=== PATIENT | female | born 1980 | race Caucasian/White ===

== ENCOUNTER 2020-09-05 09:20 | Inpatient (IN) ==
[2020-09-05] MEDS ORDERED: 0.9 % Sodium Chloride 1,000 ML IVC ONE ×2 (09:33→11:17)
[2020-09-05] MEDS ORDERED: Piperacillin/Tazobactam 3.375 GM in Water for inj. (sterile) 20 ML IVP ONE (09:40)
[2020-09-05] MEDS ORDERED: *HR* Buprenorphine HCl 8 MG TAB.SUBL SL ONE (09:47)
[2020-09-05] MEDS ORDERED: Acetaminophen 325 MG TABLET PO ONE (10:13)
[2020-09-05 10:17] LABS: Amorphous Sediment,Urine Few per hpf (None-Few); Bacteria,Urine Few per hpf (None-Few); Bilirubin,Urine Negative (Negative); Blood,Urine Negative (Negative); Clarity,Urine Turbid (Clear); Color,Urine Yellow (Yellow); Glucose,Urine (UA) Normal (Normal); Ketones,Urine 20 mg/dL (Negative); Leukocyte Esterase,Urine Large (Negative); Mucus,Urine Many per lpf (None-Few); Nitrite,Urine Negative (Negative); Protein,Urine 30 mg/dL (Neg-Trace); Specific Gravity,Urine 1.025 (1.010-1.025); Squamous Epithelial Cell,Urine Few per hpf (None-Few); WBC,Urine 15-30 per hpf (0-3)
[2020-09-05 10:22] LABS: Amphetamine Screen,Urine Positive ng/mL (Cutoff=1000); Barbiturate Screen,Urine Negative ng/mL (Cutoff=200); Benzodiazepines Screen,Urine Negative ng/mL (Cutoff=200); Cannabinoid Screen,Urine Negative ng/mL (Cutoff = 50); Cocaine Screen,Urine Negative ng/mL (Cutoff= 300); Opiate Screen,Urine Negative ng/mL (Cutoff=300); Phencyclidine Screen,Urine Negative ng/mL (Cutoff=25)
[2020-09-05 10:32] LABS: Alanine Aminotransferase 18 Units/L (7-52); Albumin 3.7 g/dL (3.5-5.7); Albumin/Globulin Ratio 0.9 (1.1-2.2); Alkaline Phosphatase 82 Units/L (34-104); Aspartate Amino Transferase 22 Units/L (13-39); BUN/Creatinine Ratio 34 (6-26); Bilirubin,Total 0.8 mg/dL (0.3-1.0); Blood Urea Nitrogen 16 mg/dL (6-20); Calcium 9.5 mg/dL (8.6-10.3); Carbon Dioxide 18 mEq/L (23-29); Chloride 103 mEq/L (98-107); Globulin 3.9 g/dL (2.4-3.5); Glucose 137 mg/dL (70-105); Osmolality,Calculated 283 (280-300); Sodium 135 mEq/L (136-145); Total Protein 7.6 g/dL (6.4-8.9); Troponin I < 0.03 ng/mL (< 0.04); eGFR For African Americans > 60 (> 60); eGFR For Non-African Americans > 60 (> 60)
[2020-09-05 10:57] LABS: Hematocrit 31.5 % (35.3-44.9); Hemoglobin 9.6 g/dL (11.5-15.4); Mean Corpuscular HGB Conc 30.5 g/dL (31.6-35.5); Mean Corpuscular Hemoglobin 17.5 pg (28.0-33.3); Mean Corpuscular Volume 57.5 fL (83.0-100.0); Platelet Count 627 K/mcL (140-400); Red Blood Count 5.48 M/mcL (3.82-4.97); Red Cell Distribution Width 16.8 % (11.5-14.5); White Blood Count 19.2 K/mcL (4.3-11.1)
[2020-09-05 11:00] LABS: Anisocytosis 1+ (Not Present); Hypochromasia Present (Not Present); Monocytes # 0.8 K/mcL (0.0-1.3); Neutrophils # 18.4 K/mcL (1.6-8.9); Ovalocytes 1+ (Not Present); Platelet Estimate Increased (Normal); Poikilocytosis 2+ (Not Present)
[2020-09-05 11:01] LABS: Schistocytes 1+ (Not Present); Target Cells 1+ (Not Present)
[2020-09-05 11:03] LABS: Microcytosis Present (Not Present)
[2020-09-05] MEDS ORDERED: Potassium Effervescent 25 MEQ TABLET.EFF PO ONE (11:41)
[2020-09-05] MEDS ORDERED: Naloxone 0.4 MG/ML INJ IVP PRN (11:58)
[2020-09-05] MEDS ORDERED: Ondansetron 4 MG/2 ML VIAL IVP PRN (11:58)
[2020-09-05] MEDS: 0.9 % Sodium Chloride 1,000 ML IVC SCH ×2 (15:06→22:36)
[2020-09-05] MEDS: Piperacillin/Tazobactam 3.375 GM in 0.9 % Sodium Chloride Mini Bag 100 ML IVPB SCH ×2 (15:07→23:07)
[2020-09-05] MEDS: *HR* Buprenorphine HCl 8 MG TAB.SUBL SL SCH (20:04)
[2020-09-05] MEDS: Acetaminophen 325 MG TABLET PO PRN (21:15)
[2020-09-06 00:42] LABS: Enterococcus by PCR Not Detected (Not Detect); mecA Methicillin-Resist Gene DETECTED (Not Detect)
[2020-09-06 00:43] LABS: Acinetobacter baumannii by PCR Not Detected (Not Detect); Candida albicans by PCR Not Detected (Not Detect); Candida glabrata by PCR Not Detected (Not Detect); Candida krusei by PCR Not Detected (Not Detect); Candida parapsilosis by PCR Not Detected (Not Detect); Candida tropicalis by PCR Not Detected (Not Detect); Enterobacter cloacae Cmplx PCR Not Detected (Not Detect); Enterobacteriaceae by PCR Not Detected (Not Detect); Escherichia coli by PCR Not Detected (Not Detect); Klebsiella oxytoca by PCR Not Detected (Not Detect); Klebsiella pneumoniae by PCR Not Detected (Not Detect); Proteus by PCR Not Detected (Not Detect); Pseudomonas aeruginosa by PCR Not Detected (Not Detect); Serratia marcescens by PCR Not Detected (Not Detect); Staphylococcus aureus by PCR DETECTED (Not Detect); Streptococcus agalactiae(B)PCR Not Detected (Not Detect); Streptococcus by PCR Not Detected (Not Detect); Streptococcus pneumoniae PCR Not Detected (Not Detect); Streptococcus pyogenes (A) PCR Not Detected (Not Detect)
[2020-09-06] MEDS: Acetaminophen 325 MG TABLET PO PRN ×3 (01:15→21:17)
[2020-09-06] MEDS: *HR* Enoxaparin 40 MG/0.4 ML SYRINGE SQ SCH (06:20)
[2020-09-06] MEDS ORDERED: Perflutren Lipid Microsphere 1.3 ML in 0.9 % Sodium Chloride 8.7 ML IVP PRN (07:27)
[2020-09-06 08:27] LABS: Eosinophils % 0.2 %; Monocytes % 7.5 %
[2020-09-06 08:29] LABS: Basophils % 0.2 %; Hematocrit 25.3 % (35.3-44.9); Hemoglobin 7.8 g/dL (11.5-15.4); Immature Granulocytes % 0.4 % (0-4); Immature Platelets 3.5 % (1.1-6.1); Lymphocytes # 1.7 K/mcL (0.6-4.6); Lymphocytes % 13.3 %; Mean Corpuscular HGB Conc 30.8 g/dL (31.6-35.5); Mean Corpuscular Hemoglobin 17.6 pg (28.0-33.3); Mean Corpuscular Volume 57.2 fL (83.0-100.0); Platelet Count 344 K/mcL (140-400); Red Blood Count 4.42 M/mcL (3.82-4.97); Red Cell Distribution Width 16.7 % (11.5-14.5); Segmented Neutrophils % 78.4 %; White Blood Count 13.1 K/mcL (4.3-11.1)
[2020-09-06 08:35] LABS: INR 1.5; Prothrombin Time 16.7 Seconds (9.4-12.1)
[2020-09-06 08:37] LABS: Activated Partial Thrombo Time 30.9 Seconds (26.0-36.0)
[2020-09-06 08:38] LABS: Neutrophils # 10.3 K/mcL (1.6-8.9)
[2020-09-06 08:45] LABS: BUN/Creatinine Ratio 27 (6-26); Blood Urea Nitrogen 12 mg/dL (6-20); Calcium 7.8 mg/dL (8.6-10.3); Carbon Dioxide 20 mEq/L (23-29); Chloride 110 mEq/L (98-107); Glucose 130 mg/dL (70-105); Magnesium 1.1 mg/dL (1.6-2.6); Osmolality,Calculated 288 (280-300); Phosphorous 2.1 mg/dL (2.7-4.5); Potassium 2.8 mEq/L (3.5-5.1); Sodium 138 mEq/L (136-145); eGFR For African Americans > 60 (> 60); eGFR For Non-African Americans > 60 (> 60)
[2020-09-06] MEDS: *HR* Buprenorphine HCl 8 MG TAB.SUBL SL SCH ×2 (08:53→21:16)
[2020-09-06 08:57] LABS: Anisocytosis 1+ (Not Present); Microcytosis Present (Not Present); Platelet Estimate Normal (Normal); Poikilocytosis 1+ (Not Present)
[2020-09-06 08:58] LABS: Hypochromasia Present (Not Present); Ovalocytes 1+ (Not Present)
[2020-09-06] MEDS ORDERED: *HR* Buprenorphine HCl 8 MG TAB.SUBL SL ONE (09:47)
[2020-09-06 18:24] LABS: Potassium 4.1 mEq/L (3.5-5.1)
[2020-09-06] MEDS: QUEtiapine Fumarate 25 MG TABLET PO SCH (21:16)
[2020-09-06] MEDS: Magnesium Oxide 400 MG TABLET PO SCH (21:17)
[2020-09-07 01:20] LABS: Red Cell Distribution Width 16.4 % (11.5-14.5)
[2020-09-07 01:21] LABS: Hematocrit 24.5 % (35.3-44.9); Hemoglobin 7.8 g/dL (11.5-15.4); Immature Platelets 3.9 % (1.1-6.1); Mean Corpuscular HGB Conc 31.8 g/dL (31.6-35.5); Mean Corpuscular Hemoglobin 17.9 pg (28.0-33.3); Mean Corpuscular Volume 56.3 fL (83.0-100.0); Platelet Count 352 K/mcL (140-400); Red Blood Count 4.35 M/mcL (3.82-4.97); White Blood Count 10.7 K/mcL (4.3-11.1)
[2020-09-07 01:43] LABS: BUN/Creatinine Ratio 28 (6-26); Blood Urea Nitrogen 10 mg/dL (6-20); Calcium 8.1 mg/dL (8.6-10.3); Carbon Dioxide 20 mEq/L (23-29); Chloride 109 mEq/L (98-107); Glucose 156 mg/dL (70-105); Iron 11 mcg/dL (50-170); Magnesium 1.5 mg/dL (1.6-2.6); Osmolality,Calculated 288 (280-300); Phosphorous 2.2 mg/dL (2.7-4.5); Potassium 3.4 mEq/L (3.5-5.1); Sodium 138 mEq/L (136-145); eGFR For African Americans > 60 (> 60); eGFR For Non-African Americans > 60 (> 60)
[2020-09-07 02:02] LABS: % Iron Saturation 6 % (15-50); Transferrin 127 mg/dL (203-362)
[2020-09-07 02:31] LABS: Eosinophils # 0.2 K/mcL (0.0-0.6); Lymphocytes # 2.6 K/mcL (0.6-4.6); Monocytes # 1.5 K/mcL (0.0-1.3); Neutrophils # 6.4 K/mcL (1.6-8.9); Platelet Estimate Normal (Normal)
[2020-09-07] MEDS: *HR* Enoxaparin 40 MG/0.4 ML SYRINGE SQ SCH (06:36)
[2020-09-07] MEDS ORDERED: Potassium Phosphate 44 MEQ in 0.9 % Sodium Chloride 250 ML IVPB ONE (07:19)
[2020-09-07] MEDS: *HR* Buprenorphine HCl 8 MG TAB.SUBL SL SCH ×2 (09:31→20:54)
[2020-09-07] MEDS: Magnesium Oxide 400 MG TABLET PO SCH ×2 (09:31→20:54)
[2020-09-07] MEDS: QUEtiapine Fumarate 25 MG TABLET PO SCH (20:54)
[2020-09-07] MEDS: Acetaminophen 325 MG TABLET PO PRN (20:54)
[2020-09-08] MEDS: Acetaminophen 325 MG TABLET PO PRN (03:55)
[2020-09-08] MEDS: *HR* Enoxaparin 40 MG/0.4 ML SYRINGE SQ SCH (06:32)
[2020-09-08 07:14] LABS: BUN/Creatinine Ratio 32 (6-26); Blood Urea Nitrogen 11 mg/dL (6-20); Calcium 8.6 mg/dL (8.6-10.3); Carbon Dioxide 23 mEq/L (23-29); Chloride 113 mEq/L (98-107); Glucose 110 mg/dL (70-105); Magnesium 1.5 mg/dL (1.6-2.6); Osmolality,Calculated 300 (280-300); Phosphorous 4.6 mg/dL (2.7-4.5); Potassium 3.8 mEq/L (3.5-5.1); Sodium 145 mEq/L (136-145); Vancomycin,Trough 9 mcg/mL (5-10); eGFR For African Americans > 60 (> 60); eGFR For Non-African Americans > 60 (> 60)
[2020-09-08] MEDS ORDERED: Vancomycin 1,250 MG/262.5 ML IV.SOLN IVPB SCH (08:00)
[2020-09-08] MEDS: Magnesium Oxide 400 MG TABLET PO SCH ×2 (08:57→21:41)
[2020-09-08] MEDS: *HR* Buprenorphine HCl 8 MG TAB.SUBL SL SCH ×2 (08:58→21:42)
[2020-09-08] MEDS ORDERED: *HR* HYDROmorphone PF 0.5 MG/0.5 ML SYRINGE IVP PRN (12:03)
[2020-09-08] MEDS ORDERED: *HR* Midazolam HCl 2 MG/2 ML VIAL ONE (12:41)
[2020-09-08] MEDS ORDERED: Ondansetron 4 MG/2 ML VIAL ONE (12:41)
[2020-09-08] MEDS ORDERED: Lidocaine -MPF 2% 2 ML VIAL ONE (12:41)
[2020-09-08] MEDS ORDERED: *HR* Propofol 200 MG/20 ML VIAL IVP ONE (12:41)
[2020-09-08] MEDS ORDERED: *HR* FentaNYL (PF) 100 MCG/2 ML VIAL ONE (12:41)
[2020-09-08] MEDS ORDERED: Naloxone 0.4 MG/ML INJ IVP PRN (13:58)
[2020-09-08] MEDS ORDERED: Ondansetron 4 MG/2 ML VIAL IVP PRN (13:58)
[2020-09-08] MEDS ORDERED: Perflutren Lipid Microsphere 1.3 ML in 0.9 % Sodium Chloride 8.7 ML IVP PRN (13:58)
[2020-09-08] MEDS: Vancomycin 1,250 MG/262.5 ML IV.SOLN IVPB SCH ×2 (16:45→23:41)
[2020-09-08] MEDS: QUEtiapine Fumarate 25 MG TABLET PO SCH (21:43)
[2020-09-09] MEDS: *HR* Enoxaparin 40 MG/0.4 ML SYRINGE SQ SCH (05:25)
[2020-09-09 08:11] LABS: BUN/Creatinine Ratio 42 (6-26); Blood Urea Nitrogen 15 mg/dL (6-20); Calcium 9.2 mg/dL (8.6-10.3); Carbon Dioxide 24 mEq/L (23-29); Chloride 105 mEq/L (98-107); Glucose 146 mg/dL (70-105); Magnesium 1.6 mg/dL (1.6-2.6); Osmolality,Calculated 289 (280-300); Phosphorous 3.5 mg/dL (2.7-4.5); Potassium 4.3 mEq/L (3.5-5.1); Sodium 138 mEq/L (136-145); eGFR For African Americans > 60 (> 60); eGFR For Non-African Americans > 60 (> 60)
[2020-09-09] MEDS: Magnesium Oxide 400 MG TABLET PO SCH ×2 (09:20→21:04)
[2020-09-09] MEDS: Vancomycin 1,250 MG/262.5 ML IV.SOLN IVPB SCH (09:21)
[2020-09-09] MEDS: *HR* Buprenorphine HCl 8 MG TAB.SUBL SL SCH ×2 (09:21→21:05)
[2020-09-09] MEDS: Acetaminophen 325 MG TABLET PO PRN ×2 (09:43→16:41)
[2020-09-09] MEDS ORDERED: 0.9 % Sodium Chloride 500 ML IVC ONE (10:14)
[2020-09-09] MEDS ORDERED: Lidocaine Viscous Oral Soln 15 ML SOLUTION MM PRN (10:14)
[2020-09-09] MEDS ORDERED: *HR* Propofol 200 MG/20 ML VIAL IVP ONE ×2 (11:40)
[2020-09-09] MEDS ORDERED: *HR* FentaNYL (PF) 100 MCG/2 ML VIAL ONE ×2 (11:40)
[2020-09-09] MEDS: cefTRIAXone 1,000 MG in Water for inj. (sterile) 10 ML IVP SCH (16:25)
[2020-09-09] MEDS: Vancomycin 1,500 MG/265 ML IV.SOLN IVPB SCH (16:26)
[2020-09-09] MEDS: QUEtiapine Fumarate 25 MG TABLET PO SCH (21:05)
[2020-09-10] MEDS: Vancomycin 1,500 MG/265 ML IV.SOLN IVPB SCH ×3 (01:21→17:07)
[2020-09-10 06:03] LABS: Hematocrit 25.1 % (35.3-44.9); Hemoglobin 7.9 g/dL (11.5-15.4); Mean Corpuscular HGB Conc 31.5 g/dL (31.6-35.5)
[2020-09-10 06:05] LABS: Immature Platelets 3.3 % (1.1-6.1); Mean Corpuscular Hemoglobin 17.8 pg (28.0-33.3); Mean Corpuscular Volume 56.5 fL (83.0-100.0); Platelet Count 429 K/mcL (140-400); Red Blood Count 4.44 M/mcL (3.82-4.97); Red Cell Distribution Width 16.8 % (11.5-14.5); White Blood Count 10.2 K/mcL (4.3-11.1)
[2020-09-10] MEDS: *HR* Enoxaparin 40 MG/0.4 ML SYRINGE SQ SCH (06:05)
[2020-09-10 06:27] LABS: BUN/Creatinine Ratio 27 (6-26); Blood Urea Nitrogen 13 mg/dL (6-20); Calcium 8.6 mg/dL (8.6-10.3); Carbon Dioxide 25 mEq/L (23-29); Chloride 105 mEq/L (98-107); Glucose 97 mg/dL (70-105); Osmolality,Calculated 282 (280-300); Potassium 4.2 mEq/L (3.5-5.1); Sodium 136 mEq/L (136-145); eGFR For African Americans > 60 (> 60); eGFR For Non-African Americans > 60 (> 60)
[2020-09-10] MEDS: Magnesium Oxide 400 MG TABLET PO SCH ×2 (09:38→20:30)
[2020-09-10] MEDS: *HR* Buprenorphine HCl 8 MG TAB.SUBL SL SCH ×2 (09:39→20:29)
[2020-09-10] MEDS: cefTRIAXone 1,000 MG in Water for inj. (sterile) 10 ML IVP SCH (09:39)
[2020-09-10] MEDS: QUEtiapine Fumarate 25 MG TABLET PO SCH (20:31)
[2020-09-11] MEDS: Vancomycin 1,500 MG/265 ML IV.SOLN IVPB SCH ×4 (00:24→20:14)
[2020-09-11 02:08] LABS: Hemoglobin 8.5 g/dL (11.5-15.4)
[2020-09-11 02:09] LABS: Hematocrit 26.9 % (35.3-44.9); Immature Platelets 4.1 % (1.1-6.1); Mean Corpuscular HGB Conc 31.6 g/dL (31.6-35.5); Mean Corpuscular Hemoglobin 18.1 pg (28.0-33.3); Mean Corpuscular Volume 57.2 fL (83.0-100.0); Platelet Count 474 K/mcL (140-400); White Blood Count 9.8 K/mcL (4.3-11.1)
[2020-09-11 02:26] LABS: BUN/Creatinine Ratio 33 (6-26); Blood Urea Nitrogen 17 mg/dL (6-20); Calcium 8.7 mg/dL (8.6-10.3); Carbon Dioxide 28 mEq/L (23-29); Chloride 100 mEq/L (98-107); Glucose 100 mg/dL (70-105); Osmolality,Calculated 282 (280-300); Potassium 4.3 mEq/L (3.5-5.1); Sodium 135 mEq/L (136-145); eGFR For African Americans > 60 (> 60); eGFR For Non-African Americans > 60 (> 60)
[2020-09-11] MEDS: *HR* Enoxaparin 40 MG/0.4 ML SYRINGE SQ SCH (06:09)
[2020-09-11] MEDS: Magnesium Oxide 400 MG TABLET PO SCH ×2 (09:41→20:13)
[2020-09-11] MEDS: *HR* Buprenorphine HCl 8 MG TAB.SUBL SL SCH ×2 (09:42→20:13)
[2020-09-11] MEDS: cefTRIAXone 1,000 MG in Water for inj. (sterile) 10 ML IVP SCH (09:42)
[2020-09-11] MEDS: QUEtiapine Fumarate 25 MG TABLET PO SCH (20:13)
[2020-09-12 03:06] LABS: Hematocrit 30.6 % (35.3-44.9); Hemoglobin 9.6 g/dL (11.5-15.4); Immature Platelets 3.8 % (1.1-6.1); Mean Corpuscular HGB Conc 31.4 g/dL (31.6-35.5); Mean Corpuscular Hemoglobin 17.7 pg (28.0-33.3); Mean Corpuscular Volume 56.4 fL (83.0-100.0); Platelet Count 556 K/mcL (140-400); Red Blood Count 5.43 M/mcL (3.82-4.97); White Blood Count 10.8 K/mcL (4.3-11.1)
[2020-09-12 03:20] LABS: BUN/Creatinine Ratio 36 (6-26); Blood Urea Nitrogen 21 mg/dL (6-20); Calcium 9.5 mg/dL (8.6-10.3); Carbon Dioxide 28 mEq/L (23-29); Chloride 98 mEq/L (98-107); Glucose 109 mg/dL (70-105); Osmolality,Calculated 280 (280-300); Potassium 4.6 mEq/L (3.5-5.1); Sodium 133 mEq/L (136-145); eGFR For African Americans > 60 (> 60); eGFR For Non-African Americans > 60 (> 60)
[2020-09-12] MEDS: Vancomycin 1,500 MG/265 ML IV.SOLN IVPB SCH ×3 (06:08→20:37)
[2020-09-12] MEDS: *HR* Enoxaparin 40 MG/0.4 ML SYRINGE SQ SCH (06:09)
[2020-09-12] MEDS: *HR* Buprenorphine HCl 8 MG TAB.SUBL SL SCH ×2 (08:27→20:37)
[2020-09-12] MEDS: cefTRIAXone 1,000 MG in Water for inj. (sterile) 10 ML IVP SCH (08:27)
[2020-09-12] MEDS: Magnesium Oxide 400 MG TABLET PO SCH ×2 (08:27→20:36)
[2020-09-12] MEDS: QUEtiapine Fumarate 25 MG TABLET PO SCH (20:36)
[2020-09-13 04:05] LABS: eGFR For African Americans > 60 (> 60); eGFR For Non-African Americans > 60 (> 60)
[2020-09-13 04:06] LABS: BUN/Creatinine Ratio 48 (6-26); Blood Urea Nitrogen 19 mg/dL (6-20); Calcium 9.5 mg/dL (8.6-10.3); Carbon Dioxide 28 mEq/L (23-29); Chloride 97 mEq/L (98-107); Glucose 112 mg/dL (70-105); Osmolality,Calculated 277 (280-300); Potassium 5.1 mEq/L (3.5-5.1); Sodium 132 mEq/L (136-145); eGFR For African Americans > 60 (> 60); eGFR For Non-African Americans > 60 (> 60)
[2020-09-13] MEDS: *HR* Enoxaparin 40 MG/0.4 ML SYRINGE SQ SCH (05:19)
[2020-09-13] MEDS: Vancomycin 1,500 MG/265 ML IV.SOLN IVPB SCH ×3 (05:19→16:51)
[2020-09-13] MEDS: *HR* Buprenorphine HCl 8 MG TAB.SUBL SL SCH ×2 (08:47→19:51)
[2020-09-13] MEDS: Magnesium Oxide 400 MG TABLET PO SCH ×2 (08:48→19:51)
[2020-09-13] MEDS: cefTRIAXone 1,000 MG in Water for inj. (sterile) 10 ML IVP SCH (08:48)
[2020-09-13] MEDS: metroNIDAZOLE 500 MG TABLET PO SCH ×2 (16:50→19:51)
[2020-09-13] MEDS: QUEtiapine Fumarate 25 MG TABLET PO SCH (19:51)
[2020-09-14 03:26] LABS: Hematocrit 29.4 % (35.3-44.9); Hemoglobin 9.1 g/dL (11.5-15.4); Mean Corpuscular Volume 58.2 fL (83.0-100.0); Platelet Count 649 K/mcL (140-400); Red Blood Count 5.05 M/mcL (3.82-4.97); Red Cell Distribution Width 17.6 % (11.5-14.5); White Blood Count 10.1 K/mcL (4.3-11.1)
[2020-09-14 03:41] LABS: BUN/Creatinine Ratio 37 (6-26); Blood Urea Nitrogen 21 mg/dL (6-20); Calcium 9.5 mg/dL (8.6-10.3); Carbon Dioxide 29 mEq/L (23-29); Chloride 97 mEq/L (98-107); Glucose 161 mg/dL (70-105); Osmolality,Calculated 280 (280-300); Potassium 4.2 mEq/L (3.5-5.1); Sodium 132 mEq/L (136-145); eGFR For African Americans > 60 (> 60); eGFR For Non-African Americans > 60 (> 60)
[2020-09-14] MEDS: Vancomycin 1,500 MG/265 ML IV.SOLN IVPB SCH ×2 (05:06→17:11)
[2020-09-14] MEDS: *HR* Enoxaparin 40 MG/0.4 ML SYRINGE SQ SCH (05:06)
[2020-09-14] MEDS: metroNIDAZOLE 500 MG TABLET PO SCH ×3 (09:28→19:52)
[2020-09-14] MEDS: Magnesium Oxide 400 MG TABLET PO SCH ×2 (09:29→19:52)
[2020-09-14] MEDS: *HR* Buprenorphine HCl 8 MG TAB.SUBL SL SCH ×2 (09:29→19:52)
[2020-09-14] MEDS: cefTRIAXone 1,000 MG in Water for inj. (sterile) 10 ML IVP SCH (09:29)
[2020-09-14 15:10] VITALS: O2SAT 97
[2020-09-14 19:50] VITALS: BP 115/77; PULSE 99; TEMP 98.5
[2020-09-14] MEDS: QUEtiapine Fumarate 25 MG TABLET PO SCH (19:51)
== END 2020-09-14 20:00 | disposition left against medical advice (07) | DRG 710 ==
LOC: 2ANU 09:20 → EMEROOARM 09:20 → SUATTDRO 12:39 → 2ANU 13:23 → SUATTDRO 09-06 17:44
PROVIDERS: ADMIT Internal Medicine; ATTEND Family Medicine

== ENCOUNTER 2020-11-13 03:11 | Inpatient (IN) ==
[2020-11-13] MEDS ORDERED: Lido/Epi/Tetra Gel 2 ML SYRINGE TP ONE (04:08)
[2020-11-13] MEDS ORDERED: Lidocaine -MPF 1% 2 ML VIAL INFILT ONE (04:18)
[2020-11-13] MEDS ORDERED: *HR* Buprenorphine HCl 2 MG SUBLINGUAL TABLET SL ONE ×2 (04:30→09:15)
[2020-11-13 04:59] LABS: Hemoglobin 9.1 g/dL (11.5-15.4); Mean Corpuscular Volume 53.7 fL (83.0-100.0)
[2020-11-13 05:01] LABS: Immature Platelets 12.8 % (1.1-6.1); Mean Corpuscular HGB Conc 32.5 g/dL (31.6-35.5); Mean Corpuscular Hemoglobin 17.5 pg (28.0-33.3); Platelet Count 154 K/mcL (140-400); Red Blood Count 5.21 M/mcL (3.82-4.97)
[2020-11-13 05:26] LABS: Troponin I 0.17 ng/mL (< 0.04)
[2020-11-13 05:36] LABS: Alanine Aminotransferase 13 Units/L (7-52); Albumin 2.6 g/dL (3.5-5.7); Albumin/Globulin Ratio 0.7 (1.1-2.2); Alkaline Phosphatase 140 Units/L (34-104); Aspartate Amino Transferase 27 Units/L (13-39); BUN/Creatinine Ratio 40 (6-26); Bilirubin,Direct 0.3 mg/dL (0.0-0.2); Bilirubin,Indirect 0.5 mg/dL (0.0-1.0); Bilirubin,Total 0.8 mg/dL (0.3-1.0); Blood Urea Nitrogen 17 mg/dL (6-20); Calcium 8.6 mg/dL (8.6-10.3); Carbon Dioxide 25 mEq/L (23-29); Chloride 101 mEq/L (98-107); Globulin 3.9 g/dL (2.4-3.5); Glucose 186 mg/dL (70-105); Lipase 9 Units/L (11-82); Magnesium 1.5 mg/dL (1.6-2.6); Osmolality,Calculated 290 (280-300); Phosphorous 2.5 mg/dL (2.7-4.5); Potassium 2.6 mEq/L (3.5-5.1); Sodium 137 mEq/L (136-145); Total Protein 6.5 g/dL (6.4-8.9); eGFR For African Americans > 60 (> 60); eGFR For Non-African Americans > 60 (> 60)
[2020-11-13 05:39] LABS: White Blood Count 30.1 K/mcL (4.3-11.1)
[2020-11-13] MEDS ORDERED: Gadolinium Contrast Agent (WT Based) IV PRN (05:44)
[2020-11-13 05:46] LABS: Lymphocytes # 1.5 K/mcL (0.6-4.6); Monocytes # 1.8 K/mcL (0.0-1.3); Neutrophils # 26.8 K/mcL (1.6-8.9)
[2020-11-13 05:47] LABS: Anisocytosis 1+ (Not Present); Ovalocytes 1+ (Not Present); Target Cells 1+ (Not Present)
[2020-11-13 05:48] LABS: Hypochromasia Present (Not Present); Platelet Estimate Normal (Normal); Poikilocytosis 1+ (Not Present); Reactive Lymphocytes Present (Not Present); Smudge Cells Present (Not Present); Toxic Granulation Present (Not Present)
[2020-11-13 06:12] LABS: Bilirubin,Urine Negative (Negative); Blood,Urine Moderate (Negative); Clarity,Urine Turbid (Clear); Color,Urine Yellow (Yellow); Glucose,Urine (UA) 70 mg/dL (Normal); Ketones,Urine Negative (Negative); Leukocyte Esterase,Urine Large (Negative); Mucus,Urine Few per lpf (None-Few); Nitrite,Urine Negative (Negative); PH,Urine 6.5 pH Units (5.0-8.0); Protein,Urine 70 mg/dL (Neg-Trace); RBC,Urine 50-100 per hpf (0-3); Renal Epithelial Cells,Urine Few per hpf (None-Few); Specific Gravity,Urine 1.018 (1.010-1.025); Squamous Epithelial Cell,Urine Few per hpf (None-Few); Transitional Epi Cells,Urine Few per hpf (None-Few); Urobilinogen,Urine >=8.0 mg/dL (Normal); WBC,Urine TNTC per hpf (0-3)
[2020-11-13 06:14] LABS: Influenza A PCR Negative (Negative); Influenza B PCR Negative (Negative); Resp. Syncytial Virus PCR Negative (Negative)
[2020-11-13 06:15] LABS: SARS-CoV-2 by PCR (In House) Negative (Negative)
[2020-11-13] MEDS ORDERED: Naloxone 0.4 MG/ML INJ IVP PRN (07:45)
[2020-11-13] MEDS ORDERED: Ondansetron 4 MG/2 ML VIAL IVP PRN (07:45)
[2020-11-13] MEDS ORDERED: Ringers Solution, Lactated 1,000 ML IVC ONE (08:17)
[2020-11-13] MEDS ORDERED: GADOBUTROL 30 MMOL/30 ML VIAL IVP ONE (08:22)
[2020-11-13] MEDS ORDERED: Vancomycin 1 EACH in 0.9 % Sodium Chloride 250 ML IVPB SCH (09:00)
[2020-11-13] MEDS: Piperacillin/Tazobactam 3.375 GM in 0.9 % Sodium Chloride Mini Bag 100 ML IVPB SCH ×2 (09:20→17:03)
[2020-11-13] MEDS ORDERED: *HR* OxyCODONE/APAP 5/325 TABLET PO PRN (09:34)
[2020-11-13 13:14] LABS: C-Reactive Protein 167 mg/L (Less than 10)
[2020-11-13] MEDS ORDERED: 0.9 % Sodium Chloride 1,000 ML ONE (14:05)
[2020-11-13] MEDS: Acetaminophen 325 MG TABLET PO PRN ×2 (14:27→20:08)
[2020-11-13] MEDS: 0.9 % Sodium Chloride 1,000 ML IVC SCH (17:04)
[2020-11-13 17:11] LABS: BUN/Creatinine Ratio 47 (6-26); Blood Urea Nitrogen 18 mg/dL (6-20); Calcium 8.1 mg/dL (8.6-10.3); Carbon Dioxide 22 mEq/L (23-29); Chloride 110 mEq/L (98-107); Glucose 168 mg/dL (70-105); Osmolality,Calculated 292 (280-300); Potassium 3.5 mEq/L (3.5-5.1); Sodium 138 mEq/L (136-145); eGFR For African Americans > 60 (> 60); eGFR For Non-African Americans > 60 (> 60)
[2020-11-13 17:12] LABS: Troponin I 0.05 ng/mL (< 0.04)
[2020-11-13 19:57] LABS: Acinetobacter baumannii by PCR Not Detected (Not Detect); Candida albicans by PCR Not Detected (Not Detect); Candida glabrata by PCR Not Detected (Not Detect); Candida krusei by PCR Not Detected (Not Detect); Candida parapsilosis by PCR Not Detected (Not Detect); Candida tropicalis by PCR Not Detected (Not Detect); Enterobacter cloacae Cmplx PCR Not Detected (Not Detect); Enterobacteriaceae by PCR Not Detected (Not Detect); Enterococcus by PCR Not Detected (Not Detect); Escherichia coli by PCR Not Detected (Not Detect); Klebsiella oxytoca by PCR Not Detected (Not Detect); Klebsiella pneumoniae by PCR Not Detected (Not Detect); Proteus by PCR Not Detected (Not Detect); Pseudomonas aeruginosa by PCR Not Detected (Not Detect); Serratia marcescens by PCR Not Detected (Not Detect); Staphylococcus aureus by PCR DETECTED (Not Detect); Streptococcus agalactiae(B)PCR Not Detected (Not Detect); Streptococcus by PCR Not Detected (Not Detect); Streptococcus pneumoniae PCR Not Detected (Not Detect); Streptococcus pyogenes (A) PCR Not Detected (Not Detect); mecA Methicillin-Resist Gene Not Detected (Not Detect); vanA/B Vancomycin-Resist Genes Not Detected (Not Detect)
[2020-11-13] MEDS: QUEtiapine Fumarate 25 MG TABLET PO SCH (20:08)
[2020-11-14] MEDS: Piperacillin/Tazobactam 3.375 GM in 0.9 % Sodium Chloride Mini Bag 100 ML IVPB SCH ×4 (00:06→23:40)
[2020-11-14] MEDS: 0.9 % Sodium Chloride 1,000 ML IVC SCH (02:49)
[2020-11-14] MEDS ORDERED: *HR* Metoprolol 5 MG/5 ML VIAL IVP ONE ×2 (03:40→03:43)
[2020-11-14] MEDS: Acetaminophen 325 MG TABLET PO PRN ×2 (08:57→17:40)
[2020-11-14] MEDS ORDERED: *HR* Buprenorphine HCl 8 MG TAB.SUBL SL SCH ×2 (09:00→21:00)
[2020-11-14 11:09] LABS: Basophils % 0.1 %; Eosinophils % 0.1 %; Hemoglobin 7.3 g/dL (11.5-15.4); Immature Granulocytes % 1.1 % (0-4)
[2020-11-14 11:11] LABS: Hematocrit 22.6 % (35.3-44.9); Immature Platelets 8.1 % (1.1-6.1); Lymphocytes % 11.1 %; Mean Corpuscular HGB Conc 32.3 g/dL (31.6-35.5); Mean Corpuscular Volume 52.6 fL (83.0-100.0); Monocytes # 1.9 K/mcL (0.0-1.3); Monocytes % 8.8 %; Neutrophils # 16.6 K/mcL (1.6-8.9); Platelet Count 163 K/mcL (140-400); Red Cell Distribution Width 18.7 % (11.5-14.5); Segmented Neutrophils % 78.8 %; White Blood Count 21.1 K/mcL (4.3-11.1)
[2020-11-14 11:17] LABS: Lymphocytes # 2.3 K/mcL (0.6-4.6)
[2020-11-14 11:21] LABS: BUN/Creatinine Ratio 31 (6-26); Blood Urea Nitrogen 11 mg/dL (6-20); Calcium 8.2 mg/dL (8.6-10.3); Carbon Dioxide 21 mEq/L (23-29); Chloride 107 mEq/L (98-107); Glucose 167 mg/dL (70-105); Magnesium 1.1 mg/dL (1.6-2.6); Osmolality,Calculated 285 (280-300); Potassium 3.1 mEq/L (3.5-5.1); Sodium 136 mEq/L (136-145); eGFR For African Americans > 60 (> 60); eGFR For Non-African Americans > 60 (> 60)
[2020-11-14 11:23] LABS: Transferrin 97 mg/dL (203-362)
[2020-11-14 11:37] LABS: INR 1.4; Prothrombin Time 16.1 Seconds (9.4-12.1)
[2020-11-14 11:40] LABS: Ferritin 323 ng/mL (10-120)
[2020-11-14 11:57] LABS: % Iron Saturation 72 % (15-50); Folate 11.6 ng/mL (3.0-16.0); Iron 98 mcg/dL (50-170)
[2020-11-14 12:06] LABS: Toxic Granulation Present (Not Present)
[2020-11-14 12:07] LABS: Hypochromasia Present (Not Present); Microcytosis Present (Not Present); Ovalocytes 1+ (Not Present); Platelet Estimate Normal (Normal)
[2020-11-14] MEDS ORDERED: 0.9 % Sodium Chloride 500 ML IV ONE (17:46)
[2020-11-14] MEDS ORDERED: Ibuprofen 400 MG TABLET PO ONE (18:00)
[2020-11-14] MEDS: Vancomycin 1,250 MG/262.5 ML IV.SOLN IVPB SCH (18:19)
[2020-11-14] MEDS: *HR* Buprenorphine HCl 8 MG TAB.SUBL SL SCH (18:31)
[2020-11-14] MEDS: QUEtiapine Fumarate 25 MG TABLET PO SCH (19:20)
[2020-11-15 00:54] LABS: Hemoglobin 7.2 g/dL (11.5-15.4)
[2020-11-15 00:55] LABS: Hematocrit 22.6 % (35.3-44.9); Immature Platelets 9.3 % (1.1-6.1); Mean Corpuscular HGB Conc 31.9 g/dL (31.6-35.5); Mean Corpuscular Hemoglobin 16.9 pg (28.0-33.3); Mean Corpuscular Volume 53.1 fL (83.0-100.0); Platelet Count 199 K/mcL (140-400); Red Blood Count 4.26 M/mcL (3.82-4.97); White Blood Count 22.2 K/mcL (4.3-11.1)
[2020-11-15 01:14] LABS: BUN/Creatinine Ratio 44 (6-26); Blood Urea Nitrogen 15 mg/dL (6-20); Carbon Dioxide 22 mEq/L (23-29); Chloride 111 mEq/L (98-107); Glucose 176 mg/dL (70-105); Magnesium 1.7 mg/dL (1.6-2.6); Osmolality,Calculated 295 (280-300); Phosphorous 3.3 mg/dL (2.7-4.5); Potassium 4.5 mEq/L (3.5-5.1); Sodium 140 mEq/L (136-145); eGFR For African Americans > 60 (> 60); eGFR For Non-African Americans > 60 (> 60)
[2020-11-15] MEDS: Vancomycin 1,250 MG/262.5 ML IV.SOLN IVPB SCH ×3 (02:01→17:03)
[2020-11-15] MEDS: Acetaminophen 325 MG TABLET PO PRN ×2 (09:00→16:08)
[2020-11-15] MEDS: *HR* Buprenorphine HCl 8 MG TAB.SUBL SL SCH ×2 (09:01→20:12)
[2020-11-15] MEDS: Piperacillin/Tazobactam 3.375 GM in 0.9 % Sodium Chloride Mini Bag 100 ML IVPB SCH (09:02)
[2020-11-15] MEDS: CeFAZolin 2,000 MG/120 ML BAG IVPB SCH (16:06)
[2020-11-15] MEDS: QUEtiapine Fumarate 25 MG TABLET PO SCH (20:12)
[2020-11-15] MEDS: Ibuprofen 400 MG TABLET PO PRN (20:16)
[2020-11-16] MEDS: CeFAZolin 2,000 MG/120 ML BAG IVPB SCH ×2 (00:08→10:20)
[2020-11-16] MEDS: Vancomycin 1,250 MG/262.5 ML IV.SOLN IVPB SCH (01:57)
[2020-11-16] MEDS ORDERED: *HR* Metoprolol 5 MG/5 ML VIAL IVP ONE ×2 (03:35→04:53)
[2020-11-16] MEDS: Acetaminophen 325 MG TABLET PO PRN ×3 (03:45→17:11)
[2020-11-16 04:44] LABS: Basophils % 0.2 %; Hemoglobin 7.1 g/dL (11.5-15.4); Mean Corpuscular HGB Conc 32.3 g/dL (31.6-35.5)
[2020-11-16 04:46] LABS: Basophils # 0.1 K/mcL (0.0-0.2); Eosinophils # 0.3 K/mcL (0.0-0.6); Eosinophils % 1.4 %; Immature Platelets 6.9 % (1.1-6.1); Lymphocytes # 2.2 K/mcL (0.6-4.6); Lymphocytes % 9.6 %; Mean Corpuscular Hemoglobin 16.8 pg (28.0-33.3); Monocytes # 1.3 K/mcL (0.0-1.3); Monocytes % 5.5 %; Platelet Count 254 K/mcL (140-400); Red Blood Count 4.23 M/mcL (3.82-4.97); Red Cell Distribution Width 19.3 % (11.5-14.5); Segmented Neutrophils % 82.3 %; White Blood Count 23.3 K/mcL (4.3-11.1)
[2020-11-16 04:54] LABS: Neutrophils # 19.2 K/mcL (1.6-8.9)
[2020-11-16 04:55] LABS: VBG HCO3 20 mEq/L (21-27); VBG PCO2 25 mmHg (41-51); VBG PO2 121 mmHg (25-50)
[2020-11-16 05:01] LABS: VBG Ionized Calcium 1.07 mmol/L (1.15-1.35)
[2020-11-16 05:14] LABS: Alanine Aminotransferase 13 Units/L (7-52); Albumin 2.3 g/dL (3.5-5.7); Albumin/Globulin Ratio 0.6 (1.1-2.2); Alkaline Phosphatase 103 Units/L (34-104); Aspartate Amino Transferase 22 Units/L (13-39); BUN/Creatinine Ratio 45 (6-26); Bilirubin,Direct 0.2 mg/dL (0.0-0.2); Bilirubin,Indirect 0.3 mg/dL (0.0-1.0); Bilirubin,Total 0.5 mg/dL (0.3-1.0); Blood Urea Nitrogen 13 mg/dL (6-20); Calcium 8.1 mg/dL (8.6-10.3); Carbon Dioxide 20 mEq/L (23-29); Chloride 103 mEq/L (98-107); Globulin 4.1 g/dL (2.4-3.5); Glucose 106 mg/dL (70-105); Magnesium 1.2 mg/dL (1.6-2.6); Osmolality,Calculated 279 (280-300); Phosphorous 4.9 mg/dL (2.7-4.5); Potassium 4.3 mEq/L (3.5-5.1); Sodium 134 mEq/L (136-145); Total Protein 6.4 g/dL (6.4-8.9); Troponin I 0.04 ng/mL (< 0.04); eGFR For African Americans > 60 (> 60); eGFR For Non-African Americans > 60 (> 60)
[2020-11-16 05:15] LABS: Hypochromasia Present (Not Present); Platelet Estimate Normal (Normal)
[2020-11-16 05:16] LABS: Anisocytosis 1+ (Not Present); Ovalocytes 1+ (Not Present); Poikilocytosis 1+ (Not Present)
[2020-11-16 05:17] LABS: Microcytosis Present (Not Present); Polychromasia 1+ (Not Present)
[2020-11-16] MEDS ORDERED: Calcium Gluconate 1gm/50mL 1 GM/50 ML BAG IVPB ONE (07:33)
[2020-11-16] MEDS: *HR* Buprenorphine HCl 8 MG TAB.SUBL SL SCH ×2 (09:16→20:28)
[2020-11-16 11:15] LABS: Amphetamine Screen,Urine Negative ng/mL (Cutoff=1000); Barbiturate Screen,Urine Negative ng/mL (Cutoff=200); Benzodiazepines Screen,Urine Negative ng/mL (Cutoff=200); Cannabinoid Screen,Urine Negative ng/mL (Cutoff = 50); Cocaine Screen,Urine Negative ng/mL (Cutoff= 300); Opiate Screen,Urine Negative ng/mL (Cutoff=300); Phencyclidine Screen,Urine Negative ng/mL (Cutoff=25)
[2020-11-16] MEDS: Vancomycin 1,500 MG/265 ML IV.SOLN IVPB SCH ×2 (11:53→18:09)
[2020-11-16] MEDS: Ibuprofen 400 MG TABLET PO PRN (17:12)
[2020-11-16] MEDS ORDERED: cefTRIAXone 1,000 MG in Water for inj. (sterile) 10 ML IVP SCH (18:00)
[2020-11-16] MEDS: QUEtiapine Fumarate 25 MG TABLET PO SCH (20:29)
[2020-11-17 01:40] LABS: Mean Corpuscular Volume 52.5 fL (83.0-100.0)
[2020-11-17 01:42] LABS: Hematocrit 22.3 % (35.3-44.9); Hemoglobin 7.2 g/dL (11.5-15.4); Immature Platelets 6.7 % (1.1-6.1); Mean Corpuscular HGB Conc 32.3 g/dL (31.6-35.5); Mean Corpuscular Hemoglobin 16.9 pg (28.0-33.3); Platelet Count 311 K/mcL (140-400); Red Blood Count 4.25 M/mcL (3.82-4.97); Red Cell Distribution Width 19.3 % (11.5-14.5); White Blood Count 19.7 K/mcL (4.3-11.1)
[2020-11-17] MEDS: Vancomycin 1,500 MG/265 ML IV.SOLN IVPB SCH ×2 (01:46→20:24)
[2020-11-17 01:58] LABS: BUN/Creatinine Ratio 40 (6-26); Blood Urea Nitrogen 12 mg/dL (6-20); Calcium 8.2 mg/dL (8.6-10.3); Carbon Dioxide 22 mEq/L (23-29); Chloride 103 mEq/L (98-107); Glucose 135 mg/dL (70-105); Magnesium 1.6 mg/dL (1.6-2.6); Osmolality,Calculated 276 (280-300); Phosphorous 3.7 mg/dL (2.7-4.5); Potassium 4.3 mEq/L (3.5-5.1); Sodium 132 mEq/L (136-145); eGFR For African Americans > 60 (> 60); eGFR For Non-African Americans > 60 (> 60)
[2020-11-17] MEDS ORDERED: *HR* Metoprolol 5 MG/5 ML VIAL IVP ONE ×3 (01:58→02:38)
[2020-11-17] MEDS ORDERED: DilTIAZem 50 MG/50 ML IV.SOLN IVC SCH (03:15)
[2020-11-17] MEDS ORDERED: CeFAZolin 2,000 MG/120 ML BAG IVPB SCH ×2 (09:00→10:00)
[2020-11-17] MEDS ORDERED: Cefdinir 300 MG CAPSULE PO SCH (09:00)
[2020-11-17] MEDS: *HR* Buprenorphine HCl 8 MG TAB.SUBL SL SCH ×2 (09:26→20:24)
[2020-11-17] MEDS ORDERED: Sulfamethoxazole/Trimeth DS 1 EACH TABLET PO SCH (09:30)
[2020-11-17] MEDS ORDERED: Perflutren Lipid Microsphere 1.3 ML in 0.9 % Sodium Chloride 8.7 ML IVP PRN (11:53)
[2020-11-17] MEDS ORDERED: Vancomycin 1,500 MG/265 ML IV.SOLN IVPB SCH (14:00)
[2020-11-17] MEDS: cefTRIAXone 1,000 MG in 0.9 % Sodium Chloride Mini Bag 100 ML IVPB SCH (19:37)
[2020-11-17] MEDS: QUEtiapine Fumarate 25 MG TABLET PO SCH (20:24)
[2020-11-18 03:10] LABS: Hematocrit 22.1 % (35.3-44.9)
[2020-11-18 03:11] LABS: VBG Ionized Calcium 1.13 mmol/L (1.15-1.35)
[2020-11-18 03:12] LABS: Hemoglobin 6.9 g/dL (11.5-15.4); Immature Platelets 4.9 % (1.1-6.1); Mean Corpuscular HGB Conc 31.2 g/dL (31.6-35.5); Mean Corpuscular Hemoglobin 16.7 pg (28.0-33.3); Mean Corpuscular Volume 53.4 fL (83.0-100.0); Platelet Count 385 K/mcL (140-400); Red Blood Count 4.14 M/mcL (3.82-4.97); Red Cell Distribution Width 19.5 % (11.5-14.5); White Blood Count 20.3 K/mcL (4.3-11.1)
[2020-11-18 03:26] LABS: BUN/Creatinine Ratio 34 (6-26); Blood Urea Nitrogen 12 mg/dL (6-20); Calcium 8.9 mg/dL (8.6-10.3); Carbon Dioxide 22 mEq/L (23-29); Chloride 99 mEq/L (98-107); Glucose 158 mg/dL (70-105); Magnesium 1.5 mg/dL (1.6-2.6); Osmolality,Calculated 273 (280-300); Phosphorous 4.3 mg/dL (2.7-4.5); Potassium 4.1 mEq/L (3.5-5.1); Sodium 130 mEq/L (136-145); eGFR For African Americans > 60 (> 60); eGFR For Non-African Americans > 60 (> 60)
[2020-11-18] MEDS: Vancomycin 1,500 MG/265 ML IV.SOLN IVPB SCH ×2 (07:25→16:37)
[2020-11-18] MEDS: *HR* Buprenorphine HCl 8 MG TAB.SUBL SL SCH ×2 (08:58→20:54)
[2020-11-18] MEDS: cefTRIAXone 1,000 MG in 0.9 % Sodium Chloride Mini Bag 100 ML IVPB SCH (20:12)
[2020-11-18] MEDS: QUEtiapine Fumarate 25 MG TABLET PO SCH (20:55)
[2020-11-19] MEDS: Vancomycin 1,500 MG/265 ML IV.SOLN IVPB SCH ×4 (01:01→15:26)
[2020-11-19 03:30] LABS: Acinetobacter baumannii by PCR Not Detected (Not Detect); Candida albicans by PCR Not Detected (Not Detect); Candida glabrata by PCR Not Detected (Not Detect); Candida krusei by PCR Not Detected (Not Detect); Candida parapsilosis by PCR Not Detected (Not Detect); Candida tropicalis by PCR Not Detected (Not Detect); Enterobacter cloacae Cmplx PCR Not Detected (Not Detect); Enterobacteriaceae by PCR Not Detected (Not Detect); Enterococcus by PCR Not Detected (Not Detect); Escherichia coli by PCR Not Detected (Not Detect); Klebsiella oxytoca by PCR Not Detected (Not Detect); Klebsiella pneumoniae by PCR Not Detected (Not Detect); Proteus by PCR Not Detected (Not Detect); Pseudomonas aeruginosa by PCR Not Detected (Not Detect); Serratia marcescens by PCR Not Detected (Not Detect); Staphylococcus aureus by PCR DETECTED (Not Detect); Staphylococcus by PCR Not Detected (Not Detect); Streptococcus agalactiae(B)PCR Not Detected (Not Detect); Streptococcus by PCR Not Detected (Not Detect); Streptococcus pneumoniae PCR Not Detected (Not Detect); Streptococcus pyogenes (A) PCR Not Detected (Not Detect); mecA Methicillin-Resist Gene Not Detected (Not Detect)
[2020-11-19 04:09] LABS: Basophils % 0.2 %; Eosinophils % 1.3 %
[2020-11-19 04:11] LABS: Eosinophils # 0.2 K/mcL (0.0-0.6); Hematocrit 21.7 % (35.3-44.9); Hemoglobin 6.9 g/dL (11.5-15.4); Immature Granulocytes % 0.6 % (0-4); Immature Platelets 4.4 % (1.1-6.1); Lymphocytes # 2.7 K/mcL (0.6-4.6); Lymphocytes % 15.5 %; Mean Corpuscular HGB Conc 31.8 g/dL (31.6-35.5); Mean Corpuscular Hemoglobin 16.9 pg (28.0-33.3); Mean Corpuscular Volume 53.2 fL (83.0-100.0); Monocytes % 7.8 %; Neutrophils # 12.8 K/mcL (1.6-8.9); Nucleated Red Blood Cells 0.1 /100 WBC (0); Platelet Count 466 K/mcL (140-400); Red Blood Count 4.08 M/mcL (3.82-4.97); Red Cell Distribution Width 19.4 % (11.5-14.5); Segmented Neutrophils % 74.6 %; White Blood Count 17.2 K/mcL (4.3-11.1)
[2020-11-19 04:16] LABS: Monocytes # 1.3 K/mcL (0.0-1.3)
[2020-11-19 04:37] LABS: BUN/Creatinine Ratio 42 (6-26); Blood Urea Nitrogen 15 mg/dL (6-20); Calcium 9.2 mg/dL (8.6-10.3); Carbon Dioxide 23 mEq/L (23-29); Chloride 98 mEq/L (98-107); Glucose 161 mg/dL (70-105); Osmolality,Calculated 272 (280-300); Potassium 4.3 mEq/L (3.5-5.1); Sodium 129 mEq/L (136-145); eGFR For African Americans > 60 (> 60); eGFR For Non-African Americans > 60 (> 60)
[2020-11-19 04:51] LABS: Anisocytosis 2+ (Not Present); Hypochromasia Present (Not Present); Microcytosis Present (Not Present); Platelet Estimate Increased (Normal); Poikilocytosis 2+ (Not Present)
[2020-11-19 04:52] LABS: Ovalocytes 1+ (Not Present); Polychromasia 1+ (Not Present); Target Cells 1+ (Not Present); Tear Drop Cells 1+ (Not Present)
[2020-11-19 05:13] LABS: Magnesium 1.7 mg/dL (1.6-2.6)
[2020-11-19] MEDS ORDERED: 0.9 % Sodium Chloride 250 ML ONE (05:18)
[2020-11-19] MEDS: *HR* Buprenorphine HCl 8 MG TAB.SUBL SL SCH ×2 (09:06→19:34)
[2020-11-19] MEDS ORDERED: *HR* Metoprolol 5 MG/5 ML VIAL IVP PRN ×2 (09:28→09:30)
[2020-11-19 15:31] LABS: Hematocrit 24.9 % (35.3-44.9)
[2020-11-19] MEDS: QUEtiapine Fumarate 25 MG TABLET PO SCH (19:34)
[2020-11-19] MEDS: cefTRIAXone 1,000 MG in 0.9 % Sodium Chloride Mini Bag 100 ML IVPB SCH (19:34)
[2020-11-19] MEDS: Acetaminophen 325 MG TABLET PO PRN (19:49)
[2020-11-20] MEDS: Vancomycin 1,500 MG/265 ML IV.SOLN IVPB SCH ×4 (00:03→17:01)
[2020-11-20 05:11] LABS: BUN/Creatinine Ratio 43 (6-26); Blood Urea Nitrogen 15 mg/dL (6-20); Calcium 9.3 mg/dL (8.6-10.3); Carbon Dioxide 26 mEq/L (23-29); Chloride 100 mEq/L (98-107); Glucose 160 mg/dL (70-105); Osmolality,Calculated 280 (280-300); Sodium 133 mEq/L (136-145); eGFR For African Americans > 60 (> 60); eGFR For Non-African Americans > 60 (> 60)
[2020-11-20 07:56] LABS: Microcytosis Present (Not Present)
[2020-11-20 07:57] LABS: Anisocytosis 1+ (Not Present); Ovalocytes 1+ (Not Present); Tear Drop Cells 1+ (Not Present)
[2020-11-20 07:58] LABS: Poikilocytosis 1+ (Not Present); Target Cells 1+ (Not Present)
[2020-11-20] MEDS: *HR* Buprenorphine HCl 8 MG TAB.SUBL SL SCH ×2 (08:14→20:32)
[2020-11-20] MEDS: Cefdinir 300 MG CAPSULE PO SCH ×2 (09:37→20:32)
[2020-11-20 12:20] LABS: Hematocrit 24.3 % (35.3-44.9); Hemoglobin 7.7 g/dL (11.5-15.4); Mean Corpuscular HGB Conc 31.7 g/dL (31.6-35.5); Mean Corpuscular Hemoglobin 18.4 pg (28.0-33.3); Mean Corpuscular Volume 58.1 fL (83.0-100.0); Platelet Count 491 K/mcL (140-400); Red Blood Count 4.18 M/mcL (3.82-4.97); Red Cell Distribution Width 22.7 % (11.5-14.5); White Blood Count 14.5 K/mcL (4.3-11.1)
[2020-11-20 12:21] LABS: Immature Platelets 4.8 % (1.1-6.1)
[2020-11-20 12:22] LABS: Basophils % 0.1 %; Eosinophils # 0.2 K/mcL (0.0-0.6); Eosinophils % 1.5 %; Lymphocytes # 2.2 K/mcL (0.6-4.6); Lymphocytes % 15.2 %; Monocytes # 1.1 K/mcL (0.0-1.3); Monocytes % 7.3 %; Neutrophils # 10.9 K/mcL (1.6-8.9); Segmented Neutrophils % 75.3 %
[2020-11-20] MEDS: Sennosides/Docusate Sodium TABLET PO SCH ×2 (14:38→20:32)
[2020-11-20 16:22] LABS: Hemoglobin 7.8 g/dL (11.5-15.4)
[2020-11-20 16:25] LABS: Immature Reticulocyte % 19.6 % (11.0-38.0); Retculocyte # 0.07 M/mcL (0.05-0.10); Reticulocyte % 1.5 % (1.6-2.8)
[2020-11-20 16:32] LABS: Iron 17 mcg/dL (50-170)
[2020-11-20 17:05] LABS: Folate 11.4 ng/mL (3.0-16.0)
[2020-11-20] MEDS: Vancomycin 1,750 MG/517.5 ML IV.SOLN IVPB SCH (17:42)
[2020-11-20] MEDS: QUEtiapine Fumarate 25 MG TABLET PO SCH (20:32)
[2020-11-20] MEDS: Acetaminophen 325 MG TABLET PO PRN (20:36)
[2020-11-21] MEDS: Vancomycin 1,750 MG/517.5 ML IV.SOLN IVPB SCH ×2 (02:05→12:45)
[2020-11-21 06:36] VITALS: O2SAT 95
[2020-11-21 09:04] LABS: Red Cell Distribution Width 23.2 % (11.5-14.5)
[2020-11-21 09:06] LABS: Basophils % 0.3 %; Eosinophils # 0.2 K/mcL (0.0-0.6); Eosinophils % 1.8 %; Hematocrit 23.4 % (35.3-44.9); Hemoglobin 7.3 g/dL (11.5-15.4); Immature Granulocytes % 0.6 % (0-4); Immature Platelets 3.2 % (1.1-6.1); Lymphocytes % 16.8 %; Mean Corpuscular HGB Conc 31.2 g/dL (31.6-35.5); Mean Corpuscular Volume 57.6 fL (83.0-100.0); Monocytes # 0.9 K/mcL (0.0-1.3); Monocytes % 7.3 %; Neutrophils # 8.8 K/mcL (1.6-8.9); Platelet Count 553 K/mcL (140-400); Red Blood Count 4.06 M/mcL (3.82-4.97); Segmented Neutrophils % 73.2 %
[2020-11-21 09:23] LABS: BUN/Creatinine Ratio 50 (6-26); Blood Urea Nitrogen 13 mg/dL (6-20); Calcium 9.3 mg/dL (8.6-10.3); Carbon Dioxide 26 mEq/L (23-29); Chloride 99 mEq/L (98-107); Glucose 152 mg/dL (70-105); Osmolality,Calculated 279 (280-300); Potassium 3.7 mEq/L (3.5-5.1); Sodium 133 mEq/L (136-145); eGFR For African Americans > 60 (> 60); eGFR For Non-African Americans > 60 (> 60)
[2020-11-21] MEDS: Sennosides/Docusate Sodium TABLET PO SCH (09:46)
[2020-11-21] MEDS: Cefdinir 300 MG CAPSULE PO SCH (09:46)
[2020-11-21] MEDS: *HR* Buprenorphine HCl 8 MG TAB.SUBL SL SCH (09:46)
[2020-11-21 10:01] LABS: Hypochromasia Present (Not Present); Microcytosis Present (Not Present); Ovalocytes 1+ (Not Present); Platelet Estimate Increased (Normal); Schistocytes 1+ (Not Present)
[2020-11-21 10:02] LABS: Anisocytosis 2+ (Not Present); Poikilocytosis 2+ (Not Present); Target Cells 1+ (Not Present)
[2020-11-21] MEDS ORDERED: Iron Sucrose Complex 400 MG in 0.9 % Sodium Chloride 250 ML IVPB ONE (11:54)
[2020-11-21 12:07] VITALS: BP 106/69; PULSE 111; TEMP 98.6
[2020-11-21 13:55] LABS: Hemoglobin 6.1 g/dL (11.5-15.4)
[2020-11-21 13:57] LABS: Hematocrit 19.4 % (35.3-44.9)
[2020-11-24 21:27] LABS: Transferrin 141 mg/dL (203-362)
[2020-11-25 07:18] LABS: Zinc 66.1 ug/dL (60.0-120.0)
== END 2020-11-21 14:05 | disposition short-term general hospital (02) | DRG 720 ==
LOC: EMEROOARM 03:11 → 2ANU 03:11 → OBSVTOIN 06:20 → SUATTDRO 06:20 → 2ANU 07:55
PROVIDERS: ADMIT Pharmacist; ATTEND Student in an Organized Health Care Education/Training Program